=== PATIENT | male | born 1955 | race Caucasian/White ===

== ENCOUNTER 2017-12-08 11:59 | Inpatient (IN) | payer MEDICARE, OTHER, MEDICAID ==
[~2017-12-08] VITALS: Ht 167.6 cm; Wt 63.5 kg
[2017-12-08] VITALS (8 sets, daily range): BP systolic 125–155; BP diastolic 61–89
[2017-12-08] MEDS ORDERED: AMLO5TAB7 PO (12:26)
[2017-12-08] MEDS ORDERED: ASCO500C18 PO (12:26)
[2017-12-08] MEDS ORDERED: COLL30OI TOP (12:26)
[2017-12-08] MEDS ORDERED: ATOR40TA PO (12:26)
[2017-12-08] MEDS ORDERED: PROT946L PO (12:26)
[2017-12-08] MEDS ORDERED: CARV6.252 PO (12:26)
[2017-12-08] MEDS ORDERED: BLOO-360 IN (12:26)
[2017-12-08] MEDS ORDERED: FERR220S17 PO (12:26)
[2017-12-08] MEDS ORDERED: ALBU0.63 IH (12:26)
[2017-12-08] MEDS ORDERED: MULT237L4 PO (12:26)
[2017-12-08] MEDS ORDERED: ASPI-1169 PO (12:26)
[2017-12-08] MEDS ORDERED: CHOL10005 PO (12:26)
[2017-12-08] MEDS ORDERED: ACET-2154 PO (12:26)
[2017-12-08] MEDS ORDERED: DIPH25CA83 PO (12:26)
[2017-12-08] MEDS ORDERED: INSU100V7 SQ (12:26)
[2017-12-08] MEDS ORDERED: FURO-151 PO (12:26)
[2017-12-08] MEDS ORDERED: TRAM50TA PO (12:26)
[2017-12-08] MEDS ORDERED: IV NORMAL SALINE 1000 ML BAG IV ONE (12:30)
[2017-12-08 12:55] LABS: BASOPHILS # (AUTO) 0.1 K/uL (0.0-8.0); BASOPHILS % (AUTO) 0.9 % (0.0-2.0); EOSINOPHILS # (AUTO) 0.2 K/uL (0.0-0.7); EOSINOPHILS % (AUTO) 2.1 % (0.0-7.0); HEMATOCRIT 28.4 % (36.7-47.1); HEMOGLOBIN 9.4 g/dL (12.5-16.3); LYMPHOCYTES # (AUTO) 2.2 K/uL (20.0-40.0); LYMPHOCYTES % (AUTO) 20.4 % (20.5-51.5); MEAN CORPUSCULAR HEMOGLOBIN 32.3 uug (23.8-33.4); MEAN CORPUSCULAR HGB CONC 33 g/dL (32.5-36.3); MONOCYTES # (AUTO) 0.7 K/uL (2.0-10.0); MONOCYTES % (AUTO) 6.4 % (0.0-11.0); NEUTROPHILS # (AUTO) 7.6 K/uL (1.8-8.9); NEUTROPHILS % (AUTO) 70.2 % (38.5-71.5); PLATELET COUNT (AUTO) 336 K/uL (152-348); WHITE BLOOD COUNT (AUTO) 10.8 K/uL (3.6-10.2)
[2017-12-08 13:15] LABS: CREATININE 2.3 mg/dL (0.6-1.3); POTASSIUM 3.9 mmol/L (3.5-5.1)
[2017-12-08 13:19] LABS: BILIRUBIN,DIRECT 0.1 mg/dL (0.0-0.2); BILIRUBIN,TOTAL 0.2 mg/dL (0.2-1.0); TOTAL PROTEIN, SERUM 7.6 g/dL (6.4-8.2)
[2017-12-08] MEDS ORDERED: PANTOPRAZOLE SODIUM IV 40 MG in IV DEXTROSE 5% 100 ML IV ONE (14:30)
[2017-12-08] MEDS ORDERED: PANTOPRAZOLE SODIUM 40 MG VIAL ONE (14:44)
[2017-12-08] MEDS ORDERED: HYDROMORPHONE 1 MG/1 ML DISP.SYRIN IV ONE (14:45)
[2017-12-08] MEDS ORDERED: ONDANSETRON IV *ER 4 MG/2 ML VIAL IV ONE (14:45)
[2017-12-08] MEDS ORDERED: HYDROMORPHONE 1 MG/1 ML DISP.SYRIN ONE (14:51)
[2017-12-08] MEDS ORDERED: ONDANSETRON 4 MG/2 ML VIAL ONE (14:52)
[2017-12-08] MEDS ORDERED: PANTOPRAZOLE SODIUM 40 MG VIAL IV ONE (15:00)
--- NOTE | 2017-12-08 15:35 | NUR ---
Orders to transfer the patient to CCU room [address] Mak and Susy aware. Report was given to Asma in CCU. CCU nurse will admit the patient
[2017-12-08] MEDS ORDERED: PIPERACILLIN/TAZOBACTAM/D5W 2.25 G in PREMIXED 1 EACH IV SCH (16:00)
[2017-12-08] MEDS ORDERED: ONDANSETRON 4 MG/2 ML VIAL IV PRN (16:00)
[2017-12-08] MEDS ORDERED: ACETAMINOPHEN 650 MG SUPP.RECT RC PRN (16:00)
--- NOTE | 2017-12-08 16:15 | NUR ---
Received patient in his room from ER. Noted patient is alert to his name, when asked about location, date, time, year and president, patient replied he is not stupid.
--- NOTE | 2017-12-08 16:45 | NUR ---
Tele monitor place on the patient. Patient is SR. Body assessment done. Patient was assessed by Susy BREWER from surgery. Pictures taken. Pt states no pain at this time. No s/s of SOB, pain, distress or discomfort. Pt was aware and compliant with pictures. Pt verbalized to call his Manasa and explain to her because he didn't understand. Body assessment done. No abdomen distention noted. 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 Noted an un-stageable sacral wound. Wound was cleansed with NS, pat dry, hydrogel and Mepilex.
[2017-12-08] MEDS ORDERED: PANTOPRAZOLE SODIUM 40 MG VIAL IV SCH (17:00)
[2017-12-08] MEDS ORDERED: PANTOPRAZOLE SODIUM IV 80 MG in IV DEXTROSE 5% 500 ML IV SCH (17:45)
[2017-12-08] MEDS: IV D5/ 0.9% NACL 1,000 ML IV PRN ×2 (17:47→17:49)
[2017-12-08] MEDS ORDERED: PIPERACILLIN/TAZOBACTAM/D5W 3.375 G in PREMIXED 1 EACH IV SCH (18:00)
--- NOTE | 2017-12-08 18:17 | NUR ---
RECEIVED A 62 Y/O MALE PT A CASE OF PERFORATED ULCER. FROM GÓMEZ DWYER FROM [facility]. 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 PT HAS SKIN ISSUES ALL IMAGES TAKEN AND OUT IN FILE. PT HAS A RT BELOW THE KNEE AMPUTATED LEG, AND A RT CASTED LEG, DUE TO SKIN ISSUES, REPORTED BY HIS . PT IS NPO
[2017-12-08 18:38] LABS: BAND % (MANUAL) 8 % (0-10); EOSINOPHILS % (MANUAL) 1 % (0-8); LYMPHOCYTES % (MANUAL) 24 % (20-40); MONOCYTES % (MANUAL) 5 % (2-10); NEUTROPHILS % (MANUAL) 62 % (42-75)
[2017-12-08] MEDS ORDERED: FLUCONAZOLE 200 MG/NS 100ML IV 100 MG in PREMIXED 1 EACH IV SCH (18:45)
--- NOTE | 2017-12-08 18:50 | NUR ---
PATIENT REFUSED TO GET AN NGT INSERTED AND REFUSED FOLYES CATHETER.
[2017-12-08] MEDS: MORPHINE SULFATE 2 MG/1 ML DISP.SYRIN IV PRN ×2 (19:19→22:47)
--- NOTE | 2017-12-08 19:35 | NUR ---
CLINICAL PHARMACY NOTE: VANCOMYCIN DOSING Request for vancomycin dosing on 62 y/o male 5'6" 140lbs for documented infection Temp 99f BUN 59 Scr 2.3 WBC 10.8 bands 8 also on Diflucan and Merrem. Start vancomycin 1gm ivpb q30 hours estimated trough 16.5. Will order trough level prior to 4th dose. Will continue to monitor
[2017-12-08] MEDS: MEROPENEM 500 MG in IV NORMAL SALINE 50 ML IV SCH (20:38)
[2017-12-08] MEDS: PANTOPRAZOLE SODIUM 40 MG VIAL IV SCH (20:38)
[2017-12-08] MEDS: VANCOMYCIN IV 1 G in PREMIXED 0 EACH IV SCH (21:01)
[2017-12-08] MEDS: FLUCONAZOLE 200 MG/NS 100ML IV 100 MG in PREMIXED 1 EACH IV SCH (22:36)
[2017-12-09] VITALS (18 sets, daily range): BP systolic 114–158; BP diastolic 45–81
--- NOTE | 2017-12-09 00:01 | NUR ---
REFUSED RUKHSANAT & KERRI. AWARE.
[2017-12-09] MEDS: MORPHINE SULFATE 2 MG/1 ML DISP.SYRIN IV PRN ×2 (00:18→15:22)
[2017-12-09 01:36] LABS: *BILIRUBIN,URIN NEGATIVE (NEGATIVE); *BLOOD, URINE 2+ (NEGATIVE); *CLARITY,URINE CLOUDY (CLEAR); *COLOR,URINE YELLOW (YELLOW); *KETONES,URINE NEGATIVE (NEGATIVE); *PROTEIN,URINE 2+ (NEGATIVE); *UROBILINOGEN,URINE 0.2 E.U./dl (NORMAL); LEUKOCYTE ESTERASE ,URINE 3+ (NEGATIVE); NITRITE, URINE NEGATIVE (NEGATIVE); PH,URINE 5.5 (5.0-8.0); UGLUCOSE NEGATIVE (NEGATIVE)
[2017-12-09 01:47] LABS: BACTERIA,URINE FEW /HPF (NONE SEEN); SQUAMOUS EPITHELIAL CELL,UR NONE SEEN /HPF (NONE SEEN); WBC,URINE TNTC /HPF (0-3)
[2017-12-09 05:52] LABS: BASOPHILS % (AUTO) 0.4 % (0.0-2.0); EOSINOPHILS # (AUTO) 0.2 K/uL (0.0-0.7); EOSINOPHILS % (AUTO) 1.4 % (0.0-7.0); HEMOGLOBIN 8.1 g/dL (12.5-16.3); LYMPHOCYTES # (AUTO) 2.4 K/uL (20.0-40.0); LYMPHOCYTES % (AUTO) 21.4 % (20.5-51.5); MEAN CORPUSCULAR HEMOGLOBIN 31.3 uug (23.8-33.4); MEAN CORPUSCULAR HGB CONC 32 g/dL (32.5-36.3); MEAN CORPUSCULAR VOLUME 97.3 fL (73.0-96.2); MONOCYTES # (AUTO) 0.9 K/uL (2.0-10.0); MONOCYTES % (AUTO) 8.1 % (0.0-11.0); NEUTROPHILS # (AUTO) 7.7 K/uL (1.8-8.9); NEUTROPHILS % (AUTO) 68.7 % (38.5-71.5); PLATELET COUNT (AUTO) 278 K/uL (152-348); RED BLOOD CELL COUNT(AUTO) 2.57 MIL/uL (4.06-5.63); WHITE BLOOD COUNT (AUTO) 11.1 K/uL (3.6-10.2)
[2017-12-09 06:19] LABS: BILIRUBIN,TOTAL 0.2 mg/dL (0.2-1.0); CREATININE 2.1 mg/dL (0.6-1.3); MAGNESIUM 1.5 mg/dL (1.8-2.4); PHOSPHOROUS 4.4 mg/dL (2.5-4.9); POTASSIUM 3.7 mmol/L (3.5-5.1); TOTAL PROTEIN, SERUM 6.7 g/dL (6.4-8.2)
[2017-12-09] MEDS: IV D5/ 0.9% NACL 1,000 ML IV PRN ×2 (06:49→21:13)
[2017-12-09 07:18] LABS: THYROID STIMULATING HORMONE 2.822 mIU/mL (0.358-3.740)
[2017-12-09] MEDS: MEROPENEM 500 MG in IV NORMAL SALINE 50 ML IV SCH ×2 (08:46→19:59)
[2017-12-09] MEDS: PANTOPRAZOLE SODIUM 40 MG VIAL IV SCH ×2 (08:47→20:52)
--- NOTE | 2017-12-09 09:51 | NUR ---
CLINICAL PHARMACY NOTE: VANCOMYCIN DOSING To continue vancomycin dosing on 62 y/o male 5'6" 140lbs for documented infection Temp 99.3f BUN 49 Scr 2.1 WBC 11.1 Will continue vancomycin 1gm ivpb q30 hours, as renal function slightly improved, est trough now 15.02. 2nd dose will be due tomorrow early am at 0300. Will order trough level prior to 4th dose (not ordered yet). Will continue to monitor
[2017-12-09] MEDS ORDERED: PANTOPRAZOLE SODIUM IV 80 MG in IV DEXTROSE 5% 500 ML IV SCH (11:00)
[2017-12-09] MEDS: LORAZEPAM 2 MG/1 ML VIAL IV PRN ×2 (11:45→18:37)
--- NOTE | 2017-12-09 13:03 | NUR ---
WOUND CARE CONSULT: PT FOLLOWED BY SURGICAL TEAM FOR WOUND CARE. DEFER TO SURGICAL TEAM FOR WOUND TREATMENT PLAN. ALL SKIN PROTECTION AND PRESSURE ULCER PREVENTION MEASURES IN PLACE AND DISCUSSED WITH NURSING STAFF. WILL SEE PRN.
[2017-12-09] MEDS ORDERED: DIATR MEGLU/DIATRIZOATE SODIUM 30 ML SOLUTION ONE ×2 (13:22→13:34)
[2017-12-09] MEDS ORDERED: MAGNESIUM SULFATE/D5W 100 ML IV SCH (14:00)
--- NOTE | 2017-12-09 15:00 | NUR ---
refused morales catheter and dvt pumps Addendum: 12/09/17 at 1929 by YAMINI SADLER RN Amended: Links added.
[2017-12-09] MEDS ORDERED: CADEXOMER IODINE 40 GM TUBE TOP SCH (17:00)
[2017-12-09] MEDS: BACITRACIN/POLYMYXIN B OINT 15 GM TUBE TOP SCH (17:13)
--- NOTE | 2017-12-09 19:15 | NUR ---
report given to Blanche RN Addendum: 12/09/17 at 1916 by YAMINI SADLER RN Amended: Links added.
--- NOTE | 2017-12-09 19:26 | NUR ---
wound care done on gangrenous fingers and also the penis. Addendum: 12/09/17 at 1927 by YAMINI SADLER RN Amended: Links added.
--- NOTE | 2017-12-09 20:00 | NUR ---
transfered pt via bed to rm 215 as telemetry pt. bp stable , afebrile. on rm air w/ o2 sat of 98%. ivf d51/2ns @ 75cc/hr on l hand infusing well. hep lock on l hand intact & patent. c-scope sr. not in any distress.
--- NOTE | 2017-12-09 20:05 | NUR ---
RECEIVED PATIENT FROM CCU, TRANSFER TO THE FLOOR. ASLEEP BUT AROUSE TO VERBAL AND TACTILE STIMULI. ALERT TO SELF ONLY. LEGALLY BLIND. RIGHT BKA. LEFT LEG WITH CAST IN PLACE. IN NO ACUTE DISTRESS. O2 AT 2LPM VIA NC IN PLACE. 02 SAT AT 98%. IV SITE ON LEFT HAND AND LEFT FOREARM INTACT AND PATENT. IV ABX INFUSING ON LEFT HAND AT THIS TIME. SAFETY MEASURE INITIATED AND CALL [facility]TZ WITHIN REACH.
[2017-12-09] MEDS: FLUCONAZOLE 200 MG/NS 100ML IV 100 MG in PREMIXED 1 EACH IV SCH (22:14)
--- NOTE | 2017-12-10 00:34 | NUR ---
PATIENT REFUSING TO HAVE DRESSING REMOVE ON RIGHT MIDDLE FINGER, UNABLE TO GET WOUND SPECIMEN AT THIS TIME.
[2017-12-10 00:36] VITALS: BP 137/53
[2017-12-10] MEDS: LORAZEPAM 2 MG/1 ML VIAL IV PRN ×3 (01:08→19:56)
[2017-12-10] MEDS: VANCOMYCIN IV 1 G in PREMIXED 0 EACH IV SCH (02:03)
--- NOTE | 2017-12-10 03:30 | NUR ---
NOTED PATIENT LEFT FOREARM IV SITE INFILTRATED. STOP IV INFUSION. REMOVE IV ON LEFT FOREARM AND STARTED NEW I V LINE ON RIGHT FOREARM # [id number]. CONTINUE IV ON RIGHT FOREARM.
[2017-12-10] MEDS: BACITRACIN/POLYMYXIN B OINT 15 GM TUBE TOP SCH (05:14)
[2017-12-10 06:17] LABS: BASOPHILS # (AUTO) 0.1 K/uL (0.0-8.0); BASOPHILS % (AUTO) 0.8 % (0.0-2.0); EOSINOPHILS # (AUTO) 0.3 K/uL (0.0-0.7); HEMATOCRIT 25.4 % (36.7-47.1); HEMOGLOBIN 8.3 g/dL (12.5-16.3); LYMPHOCYTES # (AUTO) 1.8 K/uL (20.0-40.0); LYMPHOCYTES % (AUTO) 22.8 % (20.5-51.5); MEAN CORPUSCULAR HEMOGLOBIN 32.5 uug (23.8-33.4); MEAN CORPUSCULAR HGB CONC 33 g/dL (32.5-36.3); MEAN CORPUSCULAR VOLUME 98.9 fL (73.0-96.2); MONOCYTES # (AUTO) 0.6 K/uL (2.0-10.0); MONOCYTES % (AUTO) 7.7 % (0.0-11.0); NEUTROPHILS % (AUTO) 64.7 % (38.5-71.5); PLATELET COUNT (AUTO) 247 K/uL (152-348); RED BLOOD CELL COUNT(AUTO) 2.57 MIL/uL (4.06-5.63); WHITE BLOOD COUNT (AUTO) 7.7 K/uL (3.6-10.2)
--- NOTE | 2017-12-10 06:18 | NUR ---
ALERT TO SELF ONLY BUT ABLE TO MAKE NEEDS KNOWN. IN NO ACUTE DISTRESS. O2 AT 2LPM VIA NC IN PLACE. 02 SAT AT 97%. IV SITE ON LEFT HAND AND RIGHT FOREARM INTACT AND PATENT. IVF INFUSING. NO ADVERSE REACTION NOTED FROM IV ABX. NPO STATUS SAFETY MEASURE MAINTAINED AND CALL KURTZ WITHIN REACH.
[2017-12-10 06:19] VITALS: BP 152/64
[2017-12-10 06:45] LABS: BILIRUBIN,TOTAL 0.2 mg/dL (0.2-1.0); MAGNESIUM 1.6 mg/dL (1.8-2.4); PHOSPHOROUS 4.4 mg/dL (2.5-4.9); POTASSIUM 3.4 mmol/L (3.5-5.1); TOTAL PROTEIN, SERUM 6.5 g/dL (6.4-8.2)
[2017-12-10] MEDS: MEROPENEM 500 MG in IV NORMAL SALINE 50 ML IV SCH ×2 (08:29→19:59)
[2017-12-10] MEDS: PANTOPRAZOLE SODIUM 40 MG VIAL IV SCH ×2 (08:30→20:08)
[2017-12-10] MEDS: Z GUARD REMEDY PASTE 57 GM TUBE TOP SCH ×2 (10:08→20:08)
--- NOTE | 2017-12-10 11:00 | NUR ---
CLINICAL PHARMACY NOTE: VANCOMYCIN DOSING S: To continue vancomycin dosing on 62 y/o male for documented infection O: Temp 98.9f BUN 41 Scr 2.0 WBC 7.7 ht 167.6 cm wt 63.5 kg Plan Will continue same dose of vancomycin 1gm ivpb q30 hours for today. 2nd dose will be given today at 0200. Since srcr is still elevated, will check random level before 3rd dose tomorrow (ordered for 12/11 at 0600 with am labs). Pharmacy shall review level in am & adjust the dose if needed. Vanco trough level has not yet been ordered Will continue to monitor
[2017-12-10 11:20] VITALS: BP 167/64
[2017-12-10] MEDS: CADEXOMER IODINE 40 GM TUBE TOP SCH ×2 (11:26→20:09)
[2017-12-10] MEDS: SILVER SULFADIAZINE 1% CREAM 50 GM TP SCH ×2 (11:26→20:09)
--- NOTE | 2017-12-10 11:30 | NUR ---
Sacral and penial wound care done as ordered, patient refusing to have wound care done on fingers
[2017-12-10] MEDS ORDERED: MAGNESIUM SULFATE/D5W 100 ML IV SCH (11:45)
[2017-12-10] MEDS ORDERED: POTASSIUM CHLORIDE 50 ML IV SCH (13:30)
[2017-12-10] MEDS: MORPHINE SULFATE 2 MG/1 ML DISP.SYRIN IV PRN ×2 (15:05→18:56)
--- NOTE | 2017-12-10 15:09 | NUR ---
Patient complains of sacral pain 09/16. Morphine given, will closely monitor
[2017-12-10 16:25] VITALS: BP 156/76
--- NOTE | 2017-12-10 16:36 | NUR ---
Patient yelling out and wants dressing from sacral area removed, explained the purpose and benefits to having the dressing, patient still refusing and wants it removed. Dressing removed, positioned off wound, will attempted to place new dressing when patient calms down.
--- NOTE | 2017-12-10 17:43 | NUR ---
Changed and repositioned patient, still refusing sacral dressing
--- NOTE | 2017-12-10 20:00 | NUR ---
Received pt AAO x 1, resistive to care and constantly yelling and easily agitated. Frequent redirection and reorientation provided. Tele noted to be sinus rhythm. NPO. Safe environment implemented. Call light within reach.
[2017-12-10 20:23] VITALS: BP 163/63
[2017-12-10] MEDS: IV D5/ 0.9% NACL 1,000 ML IV PRN (20:30)
[2017-12-10] MEDS ORDERED: CLONIDINE-TTS 1 PATCH TD SCH (20:45)
[2017-12-10] MEDS ORDERED: CLONIDINE-TTS 1 PATCH TD ONE (21:53)
[2017-12-10] MEDS: FLUCONAZOLE 200 MG/NS 100ML IV 100 MG in PREMIXED 1 EACH IV SCH (22:04)
[2017-12-11] MEDS: MORPHINE SULFATE 2 MG/1 ML DISP.SYRIN IV PRN (00:10)
[2017-12-11 00:44] VITALS: BP 159/66
[2017-12-11] MEDS ORDERED: LORAZEPAM 2 MG/1 ML VIAL IV PRN (01:00)
[2017-12-11] MEDS ORDERED: LORAZEPAM 2 MG/1 ML VIAL IV ONE (01:00)
[2017-12-11 05:05] VITALS: BP 152/67
--- NOTE | 2017-12-11 06:58 | NUR ---
Pt awake and agitated all night, constantly screaming. Pt refusing to have wound care done on left and right fingers, dressing appears to be intact. Sacral wound care done as ordered. Kept clean and dry. All needs attended to. Frequent reorientation, redirection, relaxation techniques implemented. Tele sinus rhythm. IV on left forearm leaking, IV line dc'd. IV hydration continued on right forearm. Safe environment implemented.
[2017-12-11 07:18] LABS: BASOPHILS % (AUTO) 0.7 % (0.0-2.0); EOSINOPHILS # (AUTO) 0.2 K/uL (0.0-0.7); EOSINOPHILS % (AUTO) 3.2 % (0.0-7.0); HEMATOCRIT 25.2 % (36.7-47.1); HEMOGLOBIN 8.3 g/dL (12.5-16.3); LYMPHOCYTES # (AUTO) 1.3 K/uL (20.0-40.0); LYMPHOCYTES % (AUTO) 19.8 % (20.5-51.5); MEAN CORPUSCULAR HEMOGLOBIN 31.9 uug (23.8-33.4); MEAN CORPUSCULAR HGB CONC 33 g/dL (32.5-36.3); MEAN CORPUSCULAR VOLUME 96.7 fL (73.0-96.2); MONOCYTES # (AUTO) 0.5 K/uL (2.0-10.0); NEUTROPHILS # (AUTO) 4.6 K/uL (1.8-8.9); NEUTROPHILS % (AUTO) 69.3 % (38.5-71.5); PLATELET COUNT (AUTO) 249 K/uL (152-348); WHITE BLOOD COUNT (AUTO) 6.7 K/uL (3.6-10.2)
[2017-12-11 08:16] LABS: CREATININE 1.9 mg/dL (0.6-1.3); MAGNESIUM 1.7 mg/dL (1.8-2.4); POTASSIUM 3.6 mmol/L (3.5-5.1); VANCOMYCIN,RANDOM 18.1 ug/mL (18.0-26.0)
--- NOTE | 2017-12-11 08:16 | NUR ---
Received pt AAO x 1, agitated and screaming. Frequent redirection and reorientation provided. Maintained on NPO. Bed in low position, side rails up x 2. Call light within reach. Ensured patient safety and comfort.
[2017-12-11] MEDS: PANTOPRAZOLE SODIUM 40 MG VIAL IV SCH ×2 (08:43→20:07)
[2017-12-11] MEDS: MEROPENEM 500 MG in IV NORMAL SALINE 50 ML IV SCH ×2 (08:43→20:06)
[2017-12-11] MEDS: IV D5/ 0.9% NACL 1,000 ML IV PRN (08:50)
[2017-12-11] MEDS: Z GUARD REMEDY PASTE 57 GM TUBE TOP SCH ×2 (09:36→20:07)
[2017-12-11] MEDS: VANCOMYCIN IV 1 G in PREMIXED 0 EACH IV SCH (09:36)
[2017-12-11] MEDS: SILVER SULFADIAZINE 1% CREAM 50 GM TP SCH ×2 (09:37→20:07)
[2017-12-11] MEDS: MAGNESIUM SULFATE/D5W 100 ML IV SCH ×2 (11:21→13:07)
[2017-12-11] MEDS: CADEXOMER IODINE 40 GM TUBE TOP SCH ×2 (11:24→20:07)
[2017-12-11 11:28] VITALS: BP 153/44
--- NOTE | 2017-12-11 11:39 | NUR ---
CLINICAL PHARMACY NOTE: VANCOMYCIN DOSING S: To continue vancomycin dosing on 62 y/o male for documented infection O: Temp 98.7f BUN 34 Scr 1.9 WBC 6.7 ht 167.6 cm wt 63.5 kg random today at 0600 18.1 Plan As random level was ok, will continue same dose of vancomycin 1gm ivpb q30 hours for today. Trough ordered and due tomorrow at 1430. Will check trough at that time and adjust as needed. Will follow
[2017-12-11] MEDS ORDERED: OLANZAPINE 10 MG VIAL IM ONE (13:15)
[2017-12-11] MEDS ORDERED: OLANZAPINE 10 MG VIAL IM STA (14:45)
[2017-12-11 15:05] VITALS: BP 144/56
--- NOTE | 2017-12-11 18:24 | NUR ---
Pt awake and agitated all day, constantly screaming that he wants to eat. Patient was placed on NPO for a possible upper GI series which was rescheduled to tomorrow, patient then placed on clear liquids. Sacral wound care done as ordered. Kept clean and dry. All needs attended to. Frequent reorientation, redirection done. Maintained on Tele and noted sinus rhythm. Safe environment implemented.
[2017-12-11 20:00] VITALS: BP 149/66
--- NOTE | 2017-12-11 20:00 | NUR ---
Received patient laying comfortably in bed. No acute distress noted. Denies pain or SOB. Patient is on O2 2L NC. A/O x 2. Mainly Comoran speaking but able to make needs known in Bengali. IVF infusing on the right FA. Patent and intact. Patient has multiple wounds; open wound on the sacral area; packed with iodoform and covered with boarded gauze, wound on the penile area. Patient has dressing covered in right hand (middle and ring finger), left hand (ring, index and thumb finger). Pictures in chart shows gangrene. Patient has a right below the knee amputation. Noted multiple scrapes and scratches on bilateral lower extremities. Nothing open, all healing. Safety initiated. Call light within reach. Will continue to monitor.
--- NOTE | 2017-12-11 21:00 | NUR ---
Wound dressing change done on the sacral area. Tolerated it well. Silverdine ointment applied on penile area. Refused wound care on the fingers. Turn and repositioned. Safety initiated. Will continue to monitor.
--- NOTE | 2017-12-11 22:21 | NUR ---
Patient made a large BM. Wound dressing on the sacral area changed. Turn and reposition. Continue to monitor.
[2017-12-11] MEDS: FLUCONAZOLE 200 MG/NS 100ML IV 100 MG in PREMIXED 1 EACH IV SCH (22:23)
[2017-12-11] MEDS ORDERED: ZIPRASIDONE MESYLATE 20 MG VIAL IM ONE (23:00)
--- NOTE | 2017-12-11 23:30 | NUR ---
Received pt confused, agitated and screaming. Dr. Friedman made aware and received orders to administer Geodon 5 mg IM one time. Frequent redirection. Will continue to monitor closely.
--- NOTE | 2017-12-12 | NUR ---
Pt awake, restless and continue to yell. Dr. SUNSHINE MD placed order of Geodon Q8h. Will administer and continue to monitor patient closely.
[2017-12-12] MEDS: IV D5/ 0.9% NACL 1,000 ML IV PRN (02:00)
[2017-12-12 04:00] VITALS: BP 153/65
[2017-12-12 05:36] LABS: BASOPHILS % (AUTO) 0.6 % (0.0-2.0); EOSINOPHILS # (AUTO) 0.2 K/uL (0.0-0.7); EOSINOPHILS % (AUTO) 3.6 % (0.0-7.0); HEMOGLOBIN 8.3 g/dL (12.5-16.3); LYMPHOCYTES # (AUTO) 1.5 K/uL (20.0-40.0); LYMPHOCYTES % (AUTO) 21.6 % (20.5-51.5); MEAN CORPUSCULAR HEMOGLOBIN 31.8 uug (23.8-33.4); MEAN CORPUSCULAR HGB CONC 32 g/dL (32.5-36.3); MEAN CORPUSCULAR VOLUME 99.1 fL (73.0-96.2); MONOCYTES # (AUTO) 0.6 K/uL (2.0-10.0); MONOCYTES % (AUTO) 8.1 % (0.0-11.0); NEUTROPHILS # (AUTO) 4.6 K/uL (1.8-8.9); NEUTROPHILS % (AUTO) 66.1 % (38.5-71.5); PLATELET COUNT (AUTO) 230 K/uL (152-348); RED BLOOD CELL COUNT(AUTO) 2.62 MIL/uL (4.06-5.63); WHITE BLOOD COUNT (AUTO) 6.9 K/uL (3.6-10.2)
[2017-12-12 05:55] LABS: CREATININE 1.8 mg/dL (0.6-1.3); MAGNESIUM 1.9 mg/dL (1.8-2.4); PHOSPHOROUS 3.3 mg/dL (2.5-4.9); POTASSIUM 3.1 mmol/L (3.5-5.1)
--- NOTE | 2017-12-12 06:36 | NUR ---
Wound care done as ordered. Pt slept intermittently throughout the night. No s/s of acute distress. Safe environment implemented.
--- NOTE | 2017-12-12 07:00 | NUR ---
Received patient in bed, asleep, in no acute distress. O2 on at 2LPM via NC. No s/s of pain or SOB noted. Iv on RFA intact, IV fluids running at 75cc/hr. Bed alarm on. Fall precaution in place. Will continue to monitor
[2017-12-12] MEDS: MEROPENEM 500 MG in IV NORMAL SALINE 50 ML IV SCH ×2 (07:49→20:37)
[2017-12-12] MEDS: PANTOPRAZOLE SODIUM 40 MG VIAL IV SCH ×2 (09:11→20:36)
[2017-12-12] MEDS: CADEXOMER IODINE 40 GM TUBE TOP SCH ×2 (09:16→20:46)
[2017-12-12] MEDS: Z GUARD REMEDY PASTE 57 GM TUBE TOP SCH ×2 (09:17→20:45)
[2017-12-12] MEDS: SILVER SULFADIAZINE 1% CREAM 50 GM TP SCH ×2 (09:17→20:46)
[2017-12-12] MEDS ORDERED: POTASSIUM CHLORIDE 20 MEQ TAB.PRT.SR PO ONE (10:15)
[2017-12-12] MEDS ORDERED: POTASSIUM CHLORIDE 100 ML IV ONE (10:30)
[2017-12-12] MEDS ORDERED: POTASSIUM CHLORIDE 50 ML IV SCH (11:00)
[2017-12-12 11:22] VITALS: BP 113/71
--- NOTE | 2017-12-12 11:30 | NUR ---
Patient noted with episode of screaming/yelling, increased agitation, unable to redirect at this time. Call placed to Dr. Friedman, new orders received to give Geodon 5mg IM x1 dose now, noted and carried out.
[2017-12-12] MEDS ORDERED: ZIPRASIDONE MESYLATE 20 MG VIAL IM ONE (11:54)
--- NOTE | 2017-12-12 15:03 | NUR ---
CLINICAL PHARMACY NOTE: VANCOMYCIN DOSING S: To continue vancomycin dosing on 62 y/o male for documented infection O: Temp 98.1f BUN 29 Scr 1.8 WBC 6.9 ht 167.6 cm wt 63.5 kg trough today at 1430 pending Plan Regimen of 1gm q30h continued with trough due today at 1430. Will check trough when resulted and adjust as needed. Will follow Addendum: 12/12/17 at 1626 by SOLA BABB ADM TROUGH WAS TAKEN LATE AT 1457, AROUND AT TIME OF SCHEDULED DOSE. RESULTED 18.1. WILL CONTINUE 1GM Q30H TROUGH WITHIN RANGE AND SCR CONTINUES TO RESOLVE. WILL CONSIDER ADJUSTING REGIMEN AND FURTHER LEVELS IF RENAL FUNCTION WERE TO CONTINUE TO IMPROVE/CHANGE OR CONDITION CHANGES. WILL FOLLOW
--- NOTE | 2017-12-12 15:07 | NUR ---
patient went off the unit to Radiology
[2017-12-12 15:25] VITALS: BP 110/70
--- NOTE | 2017-12-12 16:38 | NUR ---
Patient came back to the unit in stable condition
[2017-12-12] MEDS: VANCOMYCIN IV 1 G in PREMIXED 0 EACH IV SCH (16:40)
--- NOTE | 2017-12-12 18:17 | NUR ---
End of shift note: Patient is alert and oriented x2, confused, in no acute distress. Denies chest pain or SOB. Wound care treatment done as ordered. Denies abdominal pain, N/V at this time. All needs attended and met. Will continue to monitor
[2017-12-12 20:00] VITALS: BP 143/68
--- NOTE | 2017-12-12 21:30 | NUR ---
Received pt resting in bed, screaming but is able to redirect. Appears to be needy. AAO x2. On 2L O2 via NC, tolerating well. No acute distress noted. No c/o pain or discomfort, no facial cues noted. IV on right hand 22 gauge, receiving D5 NS 75 cc/hr. Safety measures maintained. Bed alarm on. Call light and personal belongings within reach. Will continue to monitor.
[2017-12-12] MEDS: FLUCONAZOLE 200 MG/NS 100ML IV 100 MG in PREMIXED 1 EACH IV SCH (22:25)
--- NOTE | 2017-12-12 23:39 | NUR ---
Change of assignment. Pt continues to scream. Notified Endorsed accordingly to another RN.
--- NOTE | 2017-12-12 23:40 | NUR ---
Received pt report from GÓMEZ Rockwell. Pt awake, alert and oriented x2. IV intact with no signs of swelling or redness. Pt is agitated, restless and continues to yell. Dr. Friedman made aware. Awaiting orders. Safety precautions maintained at all times. Bed on low locked position. Comfort measures initiated. Will continue to monitor.
[2017-12-13] MEDS: ZIPRASIDONE MESYLATE 20 MG VIAL IM PRN ×3 (01:35→20:07)
[2017-12-13] MEDS: IV D5/ 0.9% NACL 1,000 ML IV PRN (01:45)
[2017-12-13 04:00] VITALS: BP 163/71
--- NOTE | 2017-12-13 06:48 | NUR ---
Pt slept intermittently throughout the night, restless and easily agitated. Pt was given Geodon x1 with effect. Pt has no complaints of pain, SOB or severe headache at this time. IV on right hand 22g intact with no s/s of redness or swelling. Kept pt dry and clean. Wound care given throughout the night. Safety precautions and comfort measures maintained at all times. Bed alarm on, side rails 2x, call light within reach. Will endorse continuity of care to day shift nurse.
[2017-12-13 06:58] LABS: BILIRUBIN,TOTAL 0.2 mg/dL (0.2-1.0); CREATININE 1.7 mg/dL (0.6-1.3); MAGNESIUM 1.9 mg/dL (1.8-2.4); PHOSPHOROUS 3.3 mg/dL (2.5-4.9); POTASSIUM 3.4 mmol/L (3.5-5.1); TOTAL PROTEIN, SERUM 6.6 g/dL (6.4-8.2)
[2017-12-13 07:01] LABS: BASOPHILS % (AUTO) 0.6 % (0.0-2.0); EOSINOPHILS # (AUTO) 0.2 K/uL (0.0-0.7); EOSINOPHILS % (AUTO) 2.7 % (0.0-7.0); HEMATOCRIT 25.3 % (36.7-47.1); HEMOGLOBIN 8.3 g/dL (12.5-16.3); LYMPHOCYTES # (AUTO) 1.4 K/uL (20.0-40.0); LYMPHOCYTES % (AUTO) 20.7 % (20.5-51.5); MEAN CORPUSCULAR HEMOGLOBIN 32.2 uug (23.8-33.4); MEAN CORPUSCULAR HGB CONC 33 g/dL (32.5-36.3); MEAN CORPUSCULAR VOLUME 98.6 fL (73.0-96.2); MONOCYTES # (AUTO) 0.4 K/uL (2.0-10.0); MONOCYTES % (AUTO) 6.2 % (0.0-11.0); NEUTROPHILS # (AUTO) 4.7 K/uL (1.8-8.9); NEUTROPHILS % (AUTO) 69.8 % (38.5-71.5); PLATELET COUNT (AUTO) 244 K/uL (152-348); RED BLOOD CELL COUNT(AUTO) 2.57 MIL/uL (4.06-5.63); WHITE BLOOD COUNT (AUTO) 6.8 K/uL (3.6-10.2)
[2017-12-13] MEDS: PANTOPRAZOLE SODIUM 40 MG VIAL IV SCH ×2 (08:02→21:17)
[2017-12-13] MEDS: MEROPENEM 500 MG in IV NORMAL SALINE 50 ML IV SCH (08:02)
[2017-12-13] MEDS: POTASSIUM CHLORIDE 10 MEQ TAB.PRT.SR PO SCH (08:02)
[2017-12-13] MEDS: Z GUARD REMEDY PASTE 57 GM TUBE TOP SCH ×2 (08:03→21:17)
[2017-12-13] MEDS: CADEXOMER IODINE 40 GM TUBE TOP SCH ×2 (08:03→21:17)
[2017-12-13] MEDS: SILVER SULFADIAZINE 1% CREAM 50 GM TP SCH ×2 (08:03→21:18)
[2017-12-13 11:04] VITALS: BP 137/57
--- NOTE | 2017-12-13 12:58 | NUR ---
CLINICAL PHARMACY NOTE: VANCOMYCIN DOSING S: To continue vancomycin dosing on 62 y/o male for documented infection(possible perforated gastric ulcer) O: Temp 98 BUN 24 Scr 1.7 WBC 6.8 ht 167.6 cm wt 63.5 kg trough 12/12 at 1457: 18.1 Plan Will continue Vancomycin 1 gram IV every 30 hrs and monitor renal function. If renal function decreases continuously, will order trough again and adjust accordingly. Will monitor daily.
[2017-12-13 15:16] VITALS: BP 138/64
[2017-12-13] MEDS: MORPHINE SULFATE 2 MG/1 ML DISP.SYRIN IV PRN ×2 (18:20→23:31)
--- NOTE | 2017-12-13 18:22 | NUR ---
Pt is in no acute distress. morphine given secondary pt anxious. current sbp of 160's and Emt will wait till b/p is lower. Pt refused to have dressing changed on his fingers and unable to get updated pix on susana fingers. Updated pix taken of scaral, penile, and susana knee done. Pt to f/u with vaccination with PMD.
[2017-12-13] MEDS ORDERED: hydrALAZINE HCL 50 MG TABLET PO ONE (19:30)
[2017-12-13 20:58] VITALS: BP 179/73
[2017-12-13] MEDS: VANCOMYCIN IV 1 G in PREMIXED 0 EACH IV SCH (21:17)
--- NOTE | 2017-12-13 22:00 | NUR ---
Unable to discharge patient d/t elevated blood pressure. Dr. Fernando made aware. Hydralazine 50 mg PO administered one time as ordered. Pt agitated and constantly screaming. Redirection and relaxation techniques implemented. Will continue to monitor.
[2017-12-13 22:43] VITALS: BP 153/63
[2017-12-14] VITALS (8 sets, daily range): BP systolic 138–196; BP diastolic 56–94
--- NOTE | 2017-12-14 06:57 | NUR ---
Wound care done as ordered. Pt blood pressure noted to be 155/60 this am. All needs attended to. Frequent repositioning. Kept clean and dry. Safe environment implemented.
[2017-12-14] MEDS: PANTOPRAZOLE SODIUM 40 MG VIAL IV SCH (08:35)
[2017-12-14] MEDS: POTASSIUM CHLORIDE 10 MEQ TAB.PRT.SR PO SCH (08:35)
[2017-12-14] MEDS: SILVER SULFADIAZINE 1% CREAM 50 GM TP SCH (08:36)
[2017-12-14] MEDS: CADEXOMER IODINE 40 GM TUBE TOP SCH (08:36)
[2017-12-14] MEDS: hydrALAZINE HCL 50 MG TABLET PO SCH ×2 (08:36→13:00)
[2017-12-14] MEDS: Z GUARD REMEDY PASTE 57 GM TUBE TOP SCH (08:37)
--- NOTE | 2017-12-14 09:44 | NUR ---
CLINICAL PHARMACY NOTE: VANCOMYCIN DOSING S: To continue vancomycin dosing on 62 y/o male for documented infection(possible perforated gastric ulcer) and finger gangrene. 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 If renal function decreases continuously, will order trough again and adjust accordingly. Will monitor daily.
--- NOTE | 2017-12-14 12:39 | NUR ---
Report provided to GÓMEZ Artis @ [facility]. patient scheduled for discharge this afternoon pharmacy picking technician @ 1pm, patient compliant with meds and care,redirection needed for care, pulled out IV access, new IV access placed 20g on right forearm, wound care performed this am per MD orders, patient blood pressure remains stable.
[2017-12-14] MEDS: ZIPRASIDONE MESYLATE 20 MG VIAL IM PRN (13:43)
--- NOTE | 2017-12-14 17:00 | NUR ---
patient stable this evening, blood pressure stable. patient anxious at times, blood pressure elevated this afternoon unable to discharge. patient is however stable now. patient discharge back to [facility]. patient aware, anxious frequent redirection compliant with meds and care, questions and concerns addressed, no belongings on admission. patient discharged via BLS transport.patient with photos updated in chart 12/13/17, no change at discharge.
[2017-12-14] MEDS ORDERED: PANTOPRAZOLE SODIUM 40 MG TABLET.DR PO SCH (21:00)
== END 2017-12-14 17:00 | DRG 871 ==
LOC: ER 12:02 → TELE-TD 15:41 → CCU 17:40 → TELE 12-09 19:55 → MED 12-11 11:18
PROVIDERS: ADMIT Internal Medicine; ATTEND Internal Medicine
DX: A41.9 Sepsis, unspecified organism (principal); N17.0 Acute kidney failure with tubular necrosis; G92 Toxic encephalopathy; E43 Unspecified severe protein-calorie malnutrition; E11.52 Type 2 diabetes mellitus with diabetic peripheral angiopathy with gangrene; I96 Gangrene, not elsewhere classified; I13.0 Hypertensive heart and chronic kidney disease with heart failure and stage 1 through stage 4 chronic kidney disease, or unspecified chronic kidney disease; I50.32 Chronic diastolic (congestive) heart failure; M86.672 Other chronic osteomyelitis, left ankle and foot; E87.2 Acidosis; N39.0 Urinary tract infection, site not specified; I25.3 Aneurysm of heart; D68.59 Other primary thrombophilia; E11.65 Type 2 diabetes mellitus with hyperglycemia; E11.42 Type 2 diabetes mellitus with diabetic polyneuropathy; E11.22 Type 2 diabetes mellitus with diabetic chronic kidney disease; N18.9 Chronic kidney disease, unspecified; Z79.4 Long term (current) use of insulin; Z89.511 Acquired absence of right leg below knee; E78.5 Hyperlipidemia, unspecified; R62.7 Adult failure to thrive; Z74.01 Bed confinement status; E11.610 Type 2 diabetes mellitus with diabetic neuropathic arthropathy; M25.372 Other instability, left ankle; E11.620 Type 2 diabetes mellitus with diabetic dermatitis; L97.529 Non-pressure chronic ulcer of other part of left foot with unspecified severity; K21.9 Gastro-esophageal reflux disease without esophagitis; E11.69 Type 2 diabetes mellitus with other specified complication; H54.7 Unspecified visual loss; E87.6 Hypokalemia; S31.20XA Unspecified open wound of penis, initial encounter; X58.XXXA Exposure to other specified factors, initial encounter; Y92.129 Unspecified place in nursing home as the place of occurrence of the external cause; L89.150 Pressure ulcer of sacral region, unstageable; I25.10 Atherosclerotic heart disease of native coronary artery without angina pectoris; M95.8 Other specified acquired deformities of musculoskeletal system; Z68.22 Body mass index [BMI] 22.0-22.9, adult; F01.50 Vascular dementia, unspecified severity, without behavioral disturbance, psychotic disturbance, mood disturbance, and anxiety; E83.42 Hypomagnesemia; N40.0 Benign prostatic hyperplasia without lower urinary tract symptoms; Z79.82 Long term (current) use of aspirin; Z86.73 Personal history of transient ischemic attack (TIA), and cerebral infarction without residual deficits; Z87.440 Personal history of urinary (tract) infections; Z86.19 Personal history of other infectious and parasitic diseases; Z91.14 Patient's other noncompliance with medication regimen; N32.0 Bladder-neck obstruction; G89.29 Other chronic pain; F41.9 Anxiety disorder, unspecified; D50.9 Iron deficiency anemia, unspecified; R16.0 Hepatomegaly, not elsewhere classified; R13.10 Dysphagia, unspecified
CPT/HCPCS: 36415; 70030-TC; 71045; 74018; 74245; 76770; 83550; 83605; 83690; 83735; 84100; 84153; 84443; 85025; 85730; 87040; 87070; 87077; 87086; 93005; 93307; A4663; C9113; G0378; J1170; J1450; J2060; J2185; J2270; J2358; J2405; J2543; J3370; J3475; J3480; J3486; J3490; J7030; J7042; J7050; J7060; Q9963